=== PATIENT | male | born 1995 | race Hispanic/Latino ===

== ENCOUNTER 2017-08-02 10:14 | Emergency (ER) | payer OTHER ==
[~2017-08-02] VITALS: Ht 160 cm; Wt 61.3 kg
[2017-08-02] MEDS ORDERED: TORADOL PO (11:28)
[2017-08-02 11:40] VITALS: BP 143/88
== END 2017-08-02 11:40 | disposition home or self-care (01) | DRG 313 ==
LOC: ED 10:14
DX: R07.89 Other chest pain (principal); X50.0XXA Overexertion from strenuous movement or load, initial encounter; Y93.89 Activity, other specified; Y92.74 Orchard as the place of occurrence of the external cause; Y99.0 Civilian activity done for income or pay